=== PATIENT | female | born 1980 | race Caucasian/White ===

== ENCOUNTER 2017-03-21 02:54 | Emergency (ER) | payer OTHER ==
[~2017-03-21] VITALS: Ht 170.2 cm; Wt 120.0 kg
[~2017-03-21 02:54] MED LIST: EFFE150C PO; FERR140T PO; OMEGCAP PO; OMEP20TA PO; POLY10O EACH EYE; PRED1SUS EACH EYE; PROP60CA PO; ROPI.25 PO
[2017-03-21 03:05] VITALS: BP 168/116; PULSE 83; RESP 16; TEMP 97.6; O2SAT 98
--- NOTE | 2017-03-21 03:14 | PD ---
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 for evaluation of a rodent bite from a rat. 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 They had accidentally rode over a rat with the unit. She had gotten out of the unit to check the animal. She states that the rat bit her in her left and right index fingers. She is up- to-date with immunizations. She denies any numbness, tingling or weakness. No other injuries. PFSH Past Medical History Anemia: Yes Anxiety: Yes Depression: Yes Cancer: No Cardiovascular Problems: Yes Diabetes: Yes Patient Takes Glucophage: Yes Diminished Hearing: No Endocrine: Yes Gastrointestinal Disorders: Yes GERD: Yes Genitourinary: No Hypertension: Yes Immune Disorder: No Musculoskeletal: No Neurologic: No Psychiatric: Yes Reproductive: No Respiratory: Yes Immunizations Current: Yes Sleep Apnea: Yes Tetanus Vaccination: < 5 Years Influenza Vaccination: No PNEUMOCCOCAL Vaccine (Year): 2 ?: Not : 1 Para: 1 Miscarriage: 0 : 0 Past Surgical History Oral Surgery: Yes (tonsillectomy ) Tonsillectomy: Yes Other Surgery: Yes (GASTRIC BYPASS) Social History Alcohol Use: No Tobacco Use: No Substance Use: No Allergies-Medications (Allergen,Severity, Reaction): Coded Allergies: No Known Allergies (Verified , 03/21/17) Reported Meds & Prescriptions Reported Meds & Active Scripts Active Reported Pred Forte Opth 1% (Prednisolone Acetate Opth 1%) 1% Susp 1 Drop EACH EYE Q3H Polytrim Opth Drops (Polymyxin/Trimethoprim Sulfate) 10,000-0.1 Unit/Ml-% Soln 1 Drop EACH EYE Q3H Propranolol ER 24 HR (Propranolol HCl) 60 Mg Cap 60 Mg PO DAILY Omeprazole 20 Mg Tab 20 Mg PO DAILY [place]-3 Fish Oil/Vitamin (Fish Oil-Cholecalciferol) 1,000-1,000 Mg Cap 1 Cap PO TID Ferrous Sulfate ER (Ferrous Sulfate) 140 Mg Tab 140 Mg PO DAILY Effexor XR 24 HR (Venlafaxine HCl) 150 Mg Cap 225 Mg PO DAILY Requip (Ropinirole HCl) 0.25 Mg Tab 0.25 Mg PO ONCE Review of Systems Except as stated in HPI: all other systems reviewed are Neg Physical Exam Narrative GENERAL: This is a well-nourished, well-developed patient, in no apparent distress. SKIN: No rashes, ecchymoses or lesions. Warm and dry. Patient has 2 superficial bites to the left and right index fingers. The first is to the tip of the left index and to the medial phalanx of the right. These are just into the subcutaneous tissues. No deep injury. No nerve, tendon or joint injury. HEAD: Atraumatic. Normocephalic. EYES: PERRL, EOMI, no discharge or injection. No scleral icterus. EARS: Clear NOSE: Nasal turbinates appear normal. THROAT: Mucosa pink and moist. Airway patent. NECK: Trachea midline. supple, moves head freely. LUNGS: Clear to auscultation. CV: Regular in rhythm. ABDOMEN: Soft nontender. EXT: No clubbing cyanosis or edema. Data Data Last Documented VS Vital Signs Date Time Temp Pulse Resp B/P Pulse Ox O2 Delivery O2 Flow Rate FiO2 03/21/17 03:05 97.6 83 16 168/116 98 MDM Medical Decision Making Medical Screen Exam Complete: Yes Emergency Medical Condition: Yes Medical Record Reviewed: Yes Differential Diagnosis MDM: High Differential diagnoses: Fracture, sprain, strain, dislocation, contusion, neurovascular injury, rodent bite Narrative Course Rodents have not been identified as being a carrier of rabies. No post exposure prophylaxis is indicated. Patient's wounds are washed with soap and water. Patient is up-to-date with immunizations. This is a rat bite/Rodent bite Diagnosis Primary Impression: Rat bite Qualified Code: W53.11XA - Rat bite, initial encounter Patient Instructions: General Instructions Additional Instructions: Rest. Elevation. keep clean and dry. Daily wound care with soap, water and Neosporin. Tylenol for pain. Follow-up with a primary care doctor in one week. Return to the ER for any problems. Med/Other Pt SpecificInfo: Wound Care Disposition: DISCHARGE HOME Condition: Stable Rodolfo Alfaro Mar 21, 2017 03:14
== END 2017-03-21 03:50 | disposition home or self-care (01) ==
LOC: NEPD 02:54
DX: S61.250A Open bite of right index finger without damage to nail, initial encounter (principal); S61.251A Open bite of left index finger without damage to nail, initial encounter; D64.9 Anemia, unspecified; E11.9 Type 2 diabetes mellitus without complications; K21.9 Gastro-esophageal reflux disease without esophagitis; I10 Essential (primary) hypertension; F41.9 Anxiety disorder, unspecified; F32.9 Major depressive disorder, single episode, unspecified; W53.01XA Bitten by mouse, initial encounter
CPT/HCPCS: 99282

== ENCOUNTER 2017-06-07 16:09 | Emergency (ER) | payer OTHER ==
[~2017-06-07] VITALS: Ht 165.1 cm; Wt 125.0 kg
[2017-06-07 16:13] VITALS: BP 143/86; PULSE 86; RESP 20; TEMP 98; O2SAT 99
[2017-06-07 16:16] VITALS: BP 118/86; PULSE 88; RESP 14; TEMP 96.7
--- NOTE | 2017-06-07 16:21 | PD ---
HPI Chief Complaint: Bite or Sting Time Seen by Provider: 16:20 Travel History International Travel<30 days: No Contact w/Intl Traveler<30days: No Traveled to known affect area: No History of Present Illness HPI 37-year-old female presents emergency Department with complaint of cat bites and scratches to bilateral hands and forearms from yesterday. The cat is Farrel and says she knows the cat doesn't have rabies and does not want rabies vaccine. Denies fever, vomiting. Reports redness and swelling to her right second and fourth fingers. Up-to-date on tetanus vaccination. Has been taking [id number] medications for symptom management. Symptoms are mild in severity. No known allergies. Has no other medical complaints. No other modifying factors or associated signs and symptoms. PFSH Past Medical History Anemia: Yes Anxiety: Yes Depression: Yes Cancer: No Cardiovascular Problems: Yes Diabetes: Yes Diminished Hearing: No Endocrine: Yes Gastrointestinal Disorders: Yes GERD: Yes Genitourinary: No Hypertension: Yes Immune Disorder: No Musculoskeletal: No Neurologic: No Psychiatric: Yes Reproductive: No Respiratory: Yes Immunizations Current: Yes Sleep Apnea: Yes PNEUMOCCOCAL Vaccine (Year): 2 ?: Not LMP: 05/22/17 : 1 Para: 1 Miscarriage: 0 : 0 Past Surgical History Oral Surgery: Yes (tonsillectomy ) Tonsillectomy: Yes Other Surgery: Yes (GASTRIC BYPASS) Social History Alcohol Use: No Tobacco Use: No Substance Use: No Allergies-Medications (Allergen,Severity, Reaction): Coded Allergies: No Known Allergies (Verified , 06/07/17) Reported Meds & Prescriptions Reported Meds & Active Scripts Active Augmentin (Amoxicillin-Clavulanate) 875-125 Mg Tab 1 Tab PO BID 10 Days Reported Pred Forte Opth 1% (Prednisolone Acetate Opth 1%) 1% Susp 1 Drop EACH EYE Q3H Polytrim Opth Drops (Polymyxin/Trimethoprim Sulfate) 10,000-0.1 Unit/Ml-% Soln 1 Drop EACH EYE Q3H Propranolol ER 24 HR (Propranolol HCl) 60 Mg Cap 60 Mg PO DAILY Omeprazole 20 Mg Tab 20 Mg PO DAILY [place]-3 Fish Oil/Vitamin (Fish Oil-Cholecalciferol) 1,000-1,000 Mg Cap 1 Cap PO TID Ferrous Sulfate ER (Ferrous Sulfate) 140 Mg Tab 140 Mg PO DAILY Effexor XR 24 HR (Venlafaxine HCl) 150 Mg Cap 225 Mg PO DAILY Requip (Ropinirole HCl) 0.25 Mg Tab 0.25 Mg PO ONCE Review of Systems Except as stated in HPI: all other systems reviewed are Neg Physical Exam Narrative GENERAL: Well-nourished, well-developed female patient, in no acute distress; afebrile, nontoxic-appearing SKIN: Warm and dry. Right hand second and fourth digit with puncture wound noted some equal and there is erythema and edema surrounding the puncture wounds ; no draiange noted; both fingers edematous with decreased ROM; dorsal aspect of left hand with puncture wound noted and surrounding erythema; bilateral forearms with multiple puncture wounds and scratch bush, some with surrounding erythema. No drainage noted from any of the areas. No lymphangitis noted bilaterally. Bilateral upper extremities are supple and non-tense with 2+ radial pulses and sensory intact. HEAD: Atraumatic. Normocephalic. EYES: Pupils equal and round. No scleral icterus. No injection or drainage. ENT: Mucosa pink and moist. Airway patent. NECK: Trachea midline. CARDIOVASCULAR: Regular rate. RESPIRATORY: No accessory muscle use. GASTROINTESTINAL: Obese. MUSCULOSKELETAL: No obvious deformities. No clubbing. No cyanosis. No edema. NEUROLOGICAL: Awake and alert. Oriented 3. No obvious cranial nerve deficits. Motor grossly within normal limits. Normal speech. PSYCHIATRIC: Appropriate mood and affect; insight and judgment normal. Data Data Last Documented VS Vital Signs Date Time Temp Pulse Resp B/P (MAP) Pulse Ox O2 Delivery O2 Flow Rate FiO2 06/07/17 17:03 06/07/17 16:16 96.7 88 14 06/07/17 16:13 99 Room Air Orders Orders Amoxicil-Clavulanate (Augmentin) (06/07/17 16:45) [facility] Medical Decision Making Medical Screen Exam Complete: Yes Emergency Medical Condition: Yes Medical Record Reviewed: Yes Differential Diagnosis cat Bite, cat scratch, cellulitis, Narrative Course 37-year-old female with infected cat bites and scratches of bilateral hands, fingers, and forearms. Patient is afebrile and nontoxic-appearing. She declines initiation of rabies protocol. She is up-to-date on tetanus vaccination. She denies fever or vomiting. A prescription of Augmentin was supplied for home. Instructed patient to follow up with primary care provider. Patient verbalizes understanding and agreement with treatment plan. Patient is medically cleared and stable for discharge. Discussed reasons to return to the emergency department. Patient agrees with treatment plan. The patients vital signs are stable and the patient is stable for outpatient follow-up and treatment. Patient discharged home, stable and in no acute distress. Diagnosis Primary Impression: Infected cat bite of multiple sites of hand and fingers Qualified Codes: S61.459A - Open bite of unspecified hand, initial encounter; S61.259A - Open bite of unspecified finger without damage to nail, initial encounter; L08.9 - Local infection of the skin and subcutaneous tissue, unspecified; W55.01XA - Bitten by cat, initial encounter Additional Impression: Cat scratch of forearm Qualified Codes: S50.819A - Abrasion of unspecified forearm, initial encounter ; W55.03XA - Scratched by cat, initial encounter Referrals: Primary Care Physician Patient Instructions: Acute Wound Care (DC), Animal Bite (ED), General Instructions Additional Instructions: Antibiotics as prescribed and complete full course Ibuprofen or Tylenol as directed and as needed for pain and inflammation Keep areas clean and dry Follow-up with primary care provider Return to the emergency department immediately with worsening of symptoms Med/Other Pt SpecificInfo: Prescription(s) given Scripts Amoxicillin-Clavulanate (Augmentin) 875-125 Mg Tab 1 TAB PO BID for Infection for 10 Days, TAB 0 Refills Prov: Lorena Mittal 06/07/17 Disposition: 01 DISCHARGE HOME Condition: Stable Lorena Mittal Jun 07, 2017 16:21
[2017-06-07] MEDS ORDERED: AUGM875T3 PO (16:22)
[2017-06-07] MEDS ORDERED: AMOXICILLIN/CLAVULANATE K 875 MG TAB PO ONE (16:45)
== END 2017-06-07 17:04 | disposition home or self-care (01) ==
LOC: NEPK 16:09
DX: S61.259A Open bite of unspecified finger without damage to nail, initial encounter (principal); S51.852A Open bite of left forearm, initial encounter; S51.851A Open bite of right forearm, initial encounter; L08.9 Local infection of the skin and subcutaneous tissue, unspecified; W55.01XA Bitten by cat, initial encounter
CPT/HCPCS: 99283